=== PATIENT | male | born 1985 | race Caucasian/White ===

== ENCOUNTER 2016-11-16 23:12 | Emergency (ER) | payer OTHER, MEDICARE ==
[~2016-11-16] VITALS: Ht 182.9 cm; Wt 136.5 kg
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
[2016-11-17] MEDS ORDERED: IBUPROFEN800 M1 PO (01:46)
[2016-11-17] MEDS ORDERED: CYCLOBENZAPRINE10 M1 PO (01:46)
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
[2016-11-17 02:30] VITALS: BP 118/62
== END 2016-11-17 02:31 ==
LOC: ERH 23:12
DX: M54.2 Cervicalgia (principal); R59.1 Generalized enlarged lymph nodes